=== PATIENT | female | born 1965 | race Two or more races ===

== ENCOUNTER 2018-05-12 15:00 | Outpatient (CLI) | payer OTHER | END 2018-05-12 16:16 | disposition home or self-care (01) | LOC: RAD 501 15:00 | DX: I10 Essential (primary) hypertension (principal); M54.5 Low back pain; Z01.810 Encounter for preprocedural cardiovascular examination ==

== ENCOUNTER 2018-05-12 15:33 | Outpatient (CLI) | payer OTHER | END 2018-05-12 18:00 | disposition home or self-care (01) | LOC: MAMO-SONO 15:33 | DX: I10 Essential (primary) hypertension (principal); M54.5 Low back pain; Z01.810 Encounter for preprocedural cardiovascular examination; Z12.31 Encounter for screening mammogram for malignant neoplasm of breast ==

== ENCOUNTER 2019-05-11 09:26 | Outpatient (CLI) | payer OTHER | END 2019-05-11 09:39 | disposition home or self-care (01) | LOC: LAB 09:26 | DX: M54.5 Low back pain (principal); I10 Essential (primary) hypertension; Z01.810 Encounter for preprocedural cardiovascular examination ==

== ENCOUNTER 2019-05-11 11:00 | Outpatient (CLI) | payer OTHER | END 2019-05-11 11:05 | disposition home or self-care (01) | LOC: MAMO-SONO 11:00 | DX: Z12.31 Encounter for screening mammogram for malignant neoplasm of breast (principal); Z87.898 Personal history of other specified conditions; I10 Essential (primary) hypertension; M54.5 Low back pain; Z01.810 Encounter for preprocedural cardiovascular examination ==

== ENCOUNTER 2021-05-02 09:51 | Outpatient (CLI) | payer OTHER | END 2021-05-02 09:59 | disposition home or self-care (01) | LOC: MAMO-SONO 09:51 | PROVIDERS: ATTEND Internal Medicine | DX: N60.11 Diffuse cystic mastopathy of right breast (principal); N60.12 Diffuse cystic mastopathy of left breast ==

== ENCOUNTER 2021-05-03 10:43 | Outpatient (CLI) | payer OTHER | END 2021-05-03 13:00 | disposition home or self-care (01) | LOC: MRI 10:43 | PROVIDERS: ATTEND Orthopaedic Surgery | DX: M25.511 Pain in right shoulder (principal); M75.121 Complete rotator cuff tear or rupture of right shoulder, not specified as traumatic; M25.561 Pain in right knee; M25.562 Pain in left knee | CPT/HCPCS: 73221 ==

== ENCOUNTER 2022-05-15 11:52 | Outpatient (CLI) | payer OTHER | END 2022-05-15 12:00 | disposition home or self-care (01) | LOC: MAMO-SONO 11:52 | PROVIDERS: ATTEND Internal Medicine | DX: Z12.31 Encounter for screening mammogram for malignant neoplasm of breast (principal); N64.89 Other specified disorders of breast; N60.01 Solitary cyst of right breast; C50.919 Malignant neoplasm of unspecified site of unspecified female breast; E04.1 Nontoxic single thyroid nodule ==

== ENCOUNTER 2023-06-03 10:20 | Outpatient (CLI) | payer OTHER | END 2023-06-03 10:30 | disposition home or self-care (01) | LOC: RAD 10:20 | PROVIDERS: ATTEND Emergency Medicine Pediatric Emergency Medicine | DX: I10 Essential (primary) hypertension (principal); Z01.810 Encounter for preprocedural cardiovascular examination; C50.919 Malignant neoplasm of unspecified site of unspecified female breast; N64.89 Other specified disorders of breast; N60.01 Solitary cyst of right breast; Z12.31 Encounter for screening mammogram for malignant neoplasm of breast; Z13.820 Encounter for screening for osteoporosis; Z12.11 Encounter for screening for malignant neoplasm of colon ==